=== PATIENT | male | born 1970 | race African-American/Black ===

== ENCOUNTER 2017-10-20 23:01 | Inpatient (IN) | payer OTHER ==
[~2017-10-20] VITALS: Ht 170.2 cm; Wt 91.5 kg
--- NOTE | ~2017-10-20 | EKG ---
[place] [address] [facility] [employer] [place] [address] ELECTROCARDIOGRAM REPORT Name: SANDRA SAWYER Room #: PRE MAddy#: [id number] Admission: Attend Phys: Discharge: Date of : 74 Report #: [id number] THIS REPORT FOR: //name// [facility] ED Test Date: 2017-10-20 Test Time: 23:08:56 Pat Name: SANDRA SAWYER Department: Room: Gender: M Research Chemist: MZOONoy : 1970 Requested By: Luis M Santamaria Order Number: [id number] MD: Measurements Intervals [place] Rate: 64 P: -14 ND: 205 QRS: 69 QRSD: 82 T: 117 QT: 398 QTc: 411 Interpretive Statements Sinus rhythm Borderline prolonged ND interval Consider left ventricular hypertrophy Abnormal T, consider ischemia, lateral leads ST elevation, consider anterior injury No previous ECG available for comparison [email or web address] By: 07 07 Donna Thompson MD /EPI
--- NOTE | ~2017-10-20 | 2DMMODE ---
[facility] [address] [place] [address] 2 D/M-MODE ECHOCARDIOGRAM Name: DIGNASANDRA ANASTACIO Room #: 219-P ADM IN M.R.#: [id number] Admission: 10/21/17 Attend Phys: Joe Hanley, Discharge: Date of : 74 Date of Service: 10/23/17 [facility] [place] Report #: [id number] THIS REPORT FOR: //name// APPROVED REPORT Study performed: 10/23/2017 08:40:31 EXAM: Comprehensive 2D, Doppler, and color-flow Echocardiogram Patient Location: Bedside Room #: 219 Status: routine BSA: 2.03 HR: 52 bpm BP: 146/70 mmHg Rhythm: NSR Other Information Study Quality: Good Indications Pulmonary Embolism Pulmonary Hypertension Diabetes Chest Pain Hypertension/HDD 2D Dimensions RVDd: 32.38 mm LVEF(%): 70.00 (>50%) IVSd: 12.81 (7-11mm) LVOT Diam: 19.55 (18-24mm) LVDd: 40.91 mm PWd: 13.27 (7-11mm) Ascending Ao: 31.76 (22-36mm) LVDs: 24.93 (25-40mm) Aortic Root: 32.05 mm IVC: 22.00 mm [place]'s LVEF: 70.00 % Volumes Left Atrial Volume (Systole) Single Plane 4CH: 35.31 mL LA ESV Index: 21.00 mL/m2 Aortic Valve AoV Peak Almas.: 1.38 m/s AO Peak Gr.: 7.57 mmHg LVOT Max P.75 mmHg LVOT Max V: 1.30 m/s EVA Vmax: 2.83 cm2 [facility] [address] [address] 2 D/M-MODE ECHOCARDIOGRAM Name: SANDRA SAWYER [facility] Room #: 219-P [facility] IN .R.#: [id number] Admission: 10/21/17 Attend Phys: Joe Hanley, Discharge: Date of : 74 Date of Service: 10/23/17 [facility] [place] Report #: [id number] Mitral Valve E/A Ratio: 1.3 MV Decel. Time: 244.86 ms MV E Max Almas.: 0.70 m/s MV A Almas.: 0.52 m/s MV PHT: 71.01 ms IVRT: 115.34 ms Pulmonary Valve PV Peak Almas.: 1.35 m/s PV Peak Gr.: 7.31 mmHg NH End Vmax: 1.20 m/s Pulmonary Vein P Vein S: 0.49 m/s P Vein A: 0.19 m/s P Vein D: 0.27 m/s P Vein A Dur.: 96.9 msec P Vein S/D Ratio: 1.81 Tricuspid Valve TR Peak Almas.: 2.48 m/s TR Peak Gr.: 24.66 mmHg PA Pressure: 35.00 mmHg Left Ventricle The left ventricle is normal size. Mild concentric left ventricular hypertrophy. The left ventricular systolic function is normal. The left ventricular ejection fraction is within the normal range. LVEF is 60-65%. The left ventricular diastolic function is normal. Right Ventricle The right ventricle is normal size. The right ventricular systolic function is normal. Atria The left atrium size is normal. The right atrium size is normal. Aortic Valve The aortic valve is normal in structure. No aortic regurgitation is present. There is no aortic valvular stenosis. Mitral Valve The mitral valve is normal in structure. Trace mitral regurgitation. No evidence of mitral valve stenosis. Tricuspid Valve [address] [address] 2 D/M-MODE ECHOCARDIOGRAM Name: SANDRA SAWYER ANASTACIO Room #: 219-P ADM IN M.R.#: [id number] Admission: 10/21/17 Attend Phys: Joe Hanley, Discharge: Date of : 74 Date of Service: 10/23/17 [facility] [place] Report #: [id number] The tricuspid valve is normal in structure. There is trace tricuspid regurgitation. Estimated PAP 35 mmHg. Pulmonic Valve The pulmonary valve is normal in structure. Mild pulmonic regurgitation. Great Vessels The aortic root is normal in size. IVC is dilated and collapses >50% with inspiration. Pericardium There is no pericardial effusion. <Conclusion> The left ventricle is normal size. Mild concentric left ventricular hypertrophy. The left ventricular systolic function is normal. The right ventricle is normal size. The left atrium size is normal. The aortic valve is normal in structure. Trace mitral regurgitation. There is trace tricuspid regurgitation. Estimated PAP 35 mmHg. There is mild pulmonary hypertension. <ELECTRONICALLY SIGNED> By: Juan Luis Nielsen MD 10/23/17 1007 [id number] [id number] Juan Luis Nielsen MD /INF
--- NOTE | ~2017-10-20 | EKG ---
[address] [place] [address] ELECTROCARDIOGRAM REPORT Name: SANDRA SAWYER Room #: 219-P ADM IN M.R.#: [id number] Admission: 10/21/17 Attend Phys: Kayla Koo Discharge: Date of : 74 Report #: [id number] THIS REPORT FOR: //name// [facility] ED Test Date: 2017-10-20 Test Time: 23:08:56 Pat Name: SANDRA SAWYER Department: Room: 219 P Gender: M Utility Teller: MZOOK : 1970 Requested By: Luis M Santamaria Order Number: [id number] MD: Kiran Vance Measurements Intervals [place] Rate: 64 P: -14 [place]: 205 QRS: 69 QRSD: 82 T: 117 QT: 398 QTc: 411 Interpretive Statements Sinus rhythm Abnormal T, consider ischemia, lateral leads No previous ECG available for comparison Electronically Signed On 10-21-2017 13:05:29 CDT by Kiran Vance [email or web address] <ELECTRONICALLY SIGNED> By: Kiran Vance MD, [facility] 10/21/17 1305 [id number] [id number] Kiran Vance MD, FACC /EPI
[~2017-10-20 23:01] MED LIST: BISACODYL SUPP10 MG RECTAL; COUMADIN 5 MG TA5 M1 PO; COUMADIN7.5 MG PO; HYDROCODONE-AP1 EAC6 PO; MILK OF MA2400 MG/10 PO; TYLENOL325 MG PO
[2017-10-20 23:25] VITALS: BP 125/74
[2017-10-20] MEDS ORDERED: GLUMETZA500 PO (23:33)
[2017-10-20 23:41] LABS: HEMATOCRIT 41.9 % (42.0-52.0); HEMOGLOBIN 14.6 gm/dL (14.0-18.0); MCHC 34.8 g/dL (28.0-37.0); MCV 94.9 fL (80.0-100.0); RBC 4.42 mil/uL (4.50-6.00); WBC 8.6 thou/uL (4.0-11.0)
[2017-10-20 23:48] LABS: ANION GAP 8 mmol/L (7-16); BUN 19 mg/dL (7-18); CALCIUM 8.5 mg/dL (8.5-10.1); CHLORIDE 104 mmol/L (98-107); CO2 26 mmol/L (21-32); CREATININE 1.4 mg/dL (0.7-1.3); GLUCOSE 111 mg/dL (74-106); POTASSIUM 3.7 mmol/L (3.5-5.1); SODIUM 138 mmol/L (136-145)
[2017-10-20 23:57] LABS: ALBUMIN 3.5 g/dL (3.4-5.0); SGOT 28 U/L (15-37); SGPT 49 U/L (30-65); TOTAL BILIRUBIN 0.2 mg/dL (<0.1-1.0); TOTAL PROTEIN 7.1 g/dL (6.4-8.2); TROPONIN-I <0.06 ng/mL (<0.06)
[2017-10-21 01:00] VITALS: BP 134/79
[2017-10-21 01:36] LABS: PROTIME 10.2 Seconds (9.3-11.4)
[2017-10-21 01:49] VITALS: BP 132/76
[2017-10-21 02:08] VITALS: BP 139/77
[2017-10-21 08:52] VITALS: BP 118/82
[2017-10-21 09:26] LABS: CALCIUM 8.4 mg/dL (8.5-10.1); CREATININE 1.3 mg/dL (0.7-1.3); POTASSIUM 3.7 mmol/L (3.5-5.1)
[2017-10-21 11:27] VITALS: BP 139/91
[2017-10-21 19:22] VITALS: BP 133/80
[2017-10-22 00:15] VITALS: BP 121/54
[2017-10-22 05:30] VITALS: BP 110/67
[2017-10-22 07:58] VITALS: BP 131/87
[2017-10-22 11:32] VITALS: BP 140/85
[2017-10-22 16:13] VITALS: BP 121/84
[2017-10-22 19:21] VITALS: BP 148/86
[2017-10-23 04:38] LABS: HEMATOCRIT 43.8 % (42.0-52.0); HEMOGLOBIN 15.1 gm/dL (14.0-18.0); MCH 32.8 pg (26.0-34.0); MCHC 34.5 g/dL (28.0-37.0); MCV 94.9 fL (80.0-100.0); RBC 4.62 mil/uL (4.50-6.00)
[2017-10-23 04:45] LABS: ALBUMIN 3.4 g/dL (3.4-5.0); CALCIUM 8.9 mg/dL (8.5-10.1); CREATININE 1.1 mg/dL (0.7-1.3); POTASSIUM 3.9 mmol/L (3.5-5.1); TOTAL BILIRUBIN 0.3 mg/dL (<0.1-1.0); TOTAL PROTEIN 6.9 g/dL (6.4-8.2)
[2017-10-23 04:53] VITALS: BP 146/70
[2017-10-23 08:12] VITALS: BP 154/91
[2017-10-23 11:16] VITALS: BP 132/87
[2017-10-23 15:47] VITALS: BP 126/75
[2017-10-23 19:22] VITALS: BP 147/84
[2017-10-24 03:53] VITALS: BP 133/52
[2017-10-24 06:25] LABS: HEMATOCRIT 44.2 % (42.0-52.0); HEMOGLOBIN 15.7 gm/dL (14.0-18.0); MCH 33.3 pg (26.0-34.0); MCHC 35.5 g/dL (28.0-37.0); RBC 4.71 mil/uL (4.50-6.00); RDW 12.8 % (10.5-14.5)
[2017-10-24 06:33] LABS: CALCIUM 9.4 mg/dL (8.5-10.1); CREATININE 1.2 mg/dL (0.7-1.3); POTASSIUM 4.1 mmol/L (3.5-5.1)
[2017-10-24 08:24] VITALS: BP 102/63; BP 133/80
[2017-10-24] MEDS ORDERED: ELIQUIS5 MG PO (09:35)
[2017-10-24 09:45] VITALS: BP 133/80
== END 2017-10-24 13:16 | disposition home or self-care (01) | DRG 176 ==
LOC: ER 23:01 → 2N 10-21 00:49 → EROBS 10-21 00:49 → 2N 10-21 01:59
PROVIDERS: Emergency Medicine; Hospitalist; Nurse Practitioner Family
DX: I26.99 Other pulmonary embolism without acute cor pulmonale (principal); E11.9 Type 2 diabetes mellitus without complications; I10 Essential (primary) hypertension; F17.210 Nicotine dependence, cigarettes, uncomplicated; F12.90 Cannabis use, unspecified, uncomplicated; K08.409 Partial loss of teeth, unspecified cause, unspecified class; Z86.711 Personal history of pulmonary embolism; Z86.718 Personal history of other venous thrombosis and embolism; Z95.828 Presence of other vascular implants and grafts; Z88.6 Allergy status to analgesic agent; Z88.8 Allergy status to other drugs, medicaments and biological substances; Z79.01 Long term (current) use of anticoagulants; Z79.899 Other long term (current) drug therapy
CPT/HCPCS: 10081